=== PATIENT | female | born 1990 | race Caucasian/White ===

== ENCOUNTER → 2016-02-21 19:16 | Outpatient (CLI) | payer OTHER, MEDICAID ==
[~2016-02-21 19:16] MED LIST: IBUPROFEN600 MG PO; PERCOCET 5-3251 TAB PO; PRENATAL COMPLE1 TAB PO
[2016-03-29 05:15] VITALS: BMI 33.3
== END | disposition home or self-care (01) ==
LOC: D.LABREF 19:16
DX: J06.9 Acute upper respiratory infection, unspecified (principal)

== ENCOUNTER → 2016-02-29 17:20 | Outpatient (CLI) | payer OTHER, MEDICAID ==
[2016-02-29 19:01] LABS: APPEARANCE CLEAR (CLEAR); BILIRUBIN NEGATIVE (NEGATIVE); COLOR YELLOW (YELLOW); GLUCOSE NEGATIVE (NEGATIVE); KETONE SMALL mg/dL (NEGATIVE); LEUKOCYTE ESTERASE NEGATIVE (NEGATIVE); NITRITE NEGATIVE (NEGATIVE); PROTEIN NEGATIVE (NEGATIVE); UROBILINOGEN NORMAL (NORMAL)
[2016-03-29 05:15] VITALS: BMI 33.3
== END | disposition home or self-care (01) ==
LOC: D.LABREF 17:20 → D.LDO 17:20
PROVIDERS: Obstetrics & Gynecology
DX: Z34.90 Encounter for supervision of normal pregnancy, unspecified, unspecified trimester (principal)

== ENCOUNTER → 2016-03-10 15:25 | Outpatient (CLI) | payer OTHER, MEDICAID ==
[2016-03-10 17:17] LABS: APPEARANCE HAZY (CLEAR); BILIRUBIN NEGATIVE (NEGATIVE); COLOR YELLOW (YELLOW); GLUCOSE NEGATIVE (NEGATIVE); KETONE LARGE mg/dL (NEGATIVE); LEUKOCYTE ESTERASE 2+ (NEGATIVE); NITRITE NEGATIVE (NEGATIVE); PROTEIN NEGATIVE (NEGATIVE); UROBILINOGEN NORMAL (NORMAL); WHITE CELLS - URINE >50 /hpf (0-5)
[2016-03-10 17:18] LABS: RED CELLS - URINE 0-5 /hpf (0-5)
[2016-03-10 17:19] LABS: BACTERIA MANY /hpf (NONE SEEN); MUCUS <1+ /lpf (NONE SEEN)
[2016-03-29 05:15] VITALS: BMI 33.3
== END | disposition home or self-care (01) ==
LOC: D.LDO 15:25
PROVIDERS: Specialist
DX: Z34.90 Encounter for supervision of normal pregnancy, unspecified, unspecified trimester (principal)

== ENCOUNTER → 2016-03-16 15:04 | Outpatient (CLI) | payer OTHER, MEDICAID ==
[2016-03-16 16:21] LABS: APPEARANCE CLEAR (CLEAR); BILIRUBIN NEGATIVE (NEGATIVE); COLOR YELLOW (YELLOW); GLUCOSE NEGATIVE (NEGATIVE); KETONE NEGATIVE (NEGATIVE); LEUKOCYTE ESTERASE NEGATIVE (NEGATIVE); NITRITE NEGATIVE (NEGATIVE); PROTEIN NEGATIVE (NEGATIVE); UROBILINOGEN NORMAL (NORMAL)
[2016-03-29 05:15] VITALS: BMI 33.3
== END | disposition home or self-care (01) ==
LOC: D.LDO 15:04
PROVIDERS: Obstetrics & Gynecology
DX: O21.0 Mild hyperemesis gravidarum (principal); Z3A.38 38 weeks gestation of pregnancy

== ENCOUNTER 2016-03-29 04:30 | Inpatient (IN) | payer OTHER, MEDICAID ==
[~2016-03-29] VITALS: Ht 165.1 cm; Wt 90.7 kg
[2016-03-29] VITALS (10 sets, daily range): BP systolic 111–129; BP diastolic 64–81; Ht 165.1 cm; Wt 90.7 kg
[2016-03-29] MEDS ORDERED: PRENATAL COMPLE1 TAB PO (05:15)
[2016-03-29 06:05] LABS: HEMATOCRIT 33.8 % (36.0-48.0); MCH 28.4 pg (26.0-34.0); MCHC 32.5 g/dL (31.0-37.0); MCV 87.3 fL (80.0-100.0); MEAN PLATELET VOLUME 9.9 fL (7.4-10.4); RBC 3.87 10x6/uL (4.00-5.40); RDW 14.6 % (11.5-14.5)
[2016-03-29 06:32] LABS: APPEARANCE CLOUDY (CLEAR); COLOR YELLOW (YELLOW)
[2016-03-29 06:33] LABS: AMORPHOUS SEDIMENT <1+ /lpf (NONE SEEN); BACTERIA FEW /hpf (NONE SEEN); BILIRUBIN NEGATIVE (NEGATIVE); GLUCOSE NEGATIVE (NEGATIVE); KETONE NEGATIVE (NEGATIVE); LEUKOCYTE ESTERASE TRACE (NEGATIVE); MUCUS <1+ /lpf (NONE SEEN); NITRITE NEGATIVE (NEGATIVE); PH 6.5 (5.0-6.0); PROTEIN NEGATIVE (NEGATIVE); RED CELLS - URINE OCC /hpf (0-5); SPECIFIC GRAVITY 1.015 (1.005-1.020); UROBILINOGEN NORMAL (NORMAL); WHITE CELLS - URINE 0-5 /hpf (0-5); YEAST <1+ /hpf (NONE SEEN)
--- NOTE | 2016-03-29 14:51 | NUR ---
PT WAS RECEIVED FROM LABOR AND DELIVERY BY WHEELCHAIR. SHE TRANSFERRED TO BED. SIDE RAILS UP. BED IS LOW AND CALL LIGHT IN REACH. FUNDUS FIRM AT U2. SMALL LOCIA RUBRA.
--- NOTE | 2016-03-29 15:31 | NUR ---
PT WAS RECEIVED FROM RECOVERY POST TUBAL LIGATION. PT HAD A VAG DELIVERY THIS AM. SHE IS AWAKE AND ALERT. VSS. LUNGS- CLEAR. HEART- RRR. ABD SOFT WITH TENDERNESS WITH UMBILICAL INCISION. DRESSING CLEAN DRY AND INTACT. MODERATE LOCIA RUBRA. FUNDUS FIRM AT UMBILICUS. BED IS LOW, CALL LIGHT IN REACH AND SIDE RAILS UP X 2. SCD'S INTACT. IV INTACT R FOREARM.
--- NOTE | 2016-03-29 16:10 | NUR ---
PT STATES THAT SHE IS HAVING PAIN IN HER PERINEAL AREA AND HER ABDOMEN. SHE WOULD LIKE SOMETHING FOR PAIN. GAVE HER PERCOCET 10/325. HER MACKENZIE IS INTACT. WITH GOOD URINE OUTPUT. SHE WAS ALSO GIVEN BETADINE AND WATER TO RINSE PERINEAL AREA AFTER VOIDING AND EPIFOAM FOR HER EPISIOTOMY.
--- NOTE | 2016-03-29 16:50 | NUR ---
IV WAS SALINE LOCKED AND MACKENZIE WAS D'CD. URINE OUTPUT WAS 700 CC FOREST COLORED URINE.
--- NOTE | 2016-03-29 17:14 | NUR ---
PTS PERINAEOL PAD IS CHANGED. SMALL LOCIA RUBRA. BED PADS ARE CLEAN.
--- NOTE | 2016-03-29 18:38 | NUR ---
PT IS UP TO BATHROOM. VOIDED WITHOUT DIFFICULTY. CHANGED PERINEAL PAD AND BED PADS CHANGED. SMALL LOCIA RUBRA. BETADINE AND WATER USED AND EPIFOAM.
--- NOTE | 2016-03-29 19:00 | NUR ---
SHIFT REPORT FROM JOSS PRINCE RN
--- NOTE | 2016-03-29 19:03 | OP ---
PATIENT NAME: JARRED KAUR MEDICAL RECORD: [id number] :89 LOCATION:[id number] ADMISSION DATE:03/29/16 SURGEON: SEMAJ CALLAHAN MD DATE OF OPERATION: 03/29/2016 PREOPERATIVE DIAGNOSES: 1. Immediately after term spontaneous vaginal delivery. 2. Desired sterility. POSTOPERATIVE DIAGNOSES: 1. Immediately after term spontaneous vaginal delivery. 2. Desired sterility. SURGEON: Semaj Callahan MD. ANESTHESIA: Epidural anesthesia with Jaelyn Singh CRNA. PROCEDURE: sterilization via bilateral distal salpingectomy. FINDINGS: Normal appearing uterus, ovaries and tubes bilaterally. DESCRIPTION OF PROCEDURE: After informed consent was given, the patient was taken to the operating room where epidural anesthesia was bolused and found to be adequate. She was placed in a dorsal supine position. A Whelan catheter was placed with clear urine return noted. She was prepped and draped sterilely and infraumbilical incision was then made in transverse fashion and carried down to the underlying layer of fascia. The fascia was incised and the fascial incision extended bilaterally with the Espinoza scissors. The peritoneum was identified, grasped with 2 hemostats and entered sharply with the Metzenbaum scissors. This incision was extended bilaterally. The [facility] retractors were then placed into the incision and the left fallopian tube was visualized, grasped with a Brenna clamp, followed out to its fimbriated edge. A defect was created in the mesosalpinx proximally and distally and a hemostat was used to clamp the more proximal portion of the fallopian tube, the mesosalpinx medially and the distal portion of the mesosalpinx. The Bovie cautery was then used to excise the fallopian tube and fimbria and this was passed off the field as specimen. The 3 pedicles were then suture ligated with 3-0 Vicryl stick ties. Excellent hemostasis was noted. Attention was then turned to the opposite side. The right fallopian tube was visualized, grabbed with a Brenna clamp, followed out to its fimbriated edge. Two defects were created in the mesosalpinx with the Bovie cautery. A hemostat was placed at the proximal portion of the fallopian tube. Second hemostat was placed medially of the mesosalpinx and finally a third was placed at the distal portion of the mesosalpinx. The fallopian tube was then excised with the Bovie cautery and passed off the field as specimen. The 3 pedicles were suture ligated with 3-0 Vicryl stick ties in a similar fashion. All pedicles were then observed and noted to be hemostatic. The fascia and peritoneum were closed in one layer with #1 Vicryl in a running fashion. The subcutaneous tissue was irrigated, any bleeders cauterized with Bovie and when noted to be sufficiently dry was closed in 2 layers with 3-0 Vicryl in a running fashion. The skin was closed with 3-0 Monocryl in a subcuticular fashion. Dermabond and air strip dressing were applied. Excellent hemostasis was noted. Sponge, lap, needle, and instrument counts were reported correct times 2 and the patient went to the recovery room in stable condition. SPECIMENS: OPERATIVE REPORT [id number] JARRED KAUR 1. Right distal fallopian tube/fimbria. 2. Left distal fallopian tube/fimbria. ESTIMATED BLOOD LOSS: Minimal. COMPLICATIONS: None. TRANSINT:[id number] Voice Confirmation ID: [id number] DOCUMENT ID: [id number] SEMAJ CALLAHAN MD at 1903 CC: [id number] DICTATION DATE: 03/29/16 1436 SUPPORT TEACHER: 03/29/16 1628 ADM IN [facility] [address] [id number]
--- NOTE | 2016-03-29 19:40 | NUR ---
PM ROUNDS MADE, PT HOLDING BABY, VISITING WITH FAMILY AND FRIENDS, INFORMED PT THAT I WILL COME BACK TO DO ASSESSMENT, PT VERBALIZES UNDERSTANDING, REQUESTED AND PROVIDED PACIFIER, PT REQUESTS PAIN MED AFTER COMPANY LEAVES, INFORMED PT THAT I WILL BRING IT BACK THEN, PT DENIES FURTHER NEEDS
--- NOTE | 2016-03-29 20:35 | NUR ---
ASSESSMENT PER FLOW SHEET, VS OBTAINED, IV IN RIGHT FA INTACT WITH NO REDNESS OR EDEMA, UMB INC WITH DRESSING CDI WITH NO DRAINAGE NOTED, PT REPORTS LITE BLEEDING WITH A FEW STRINGY CLOTS, PT DENIES FLATUS, NO BM AND VOIDING BY SELF WITH NO DIFFICULTY, PT C/O INC PAIN, ADM PERCOCET AND MOM PO PER MD ORDERS, SEE EMAR, PT DENIES FURTHER NEEDS, BABY TO PT'S ARMS, FOB AT BEDSIDE
--- NOTE | 2016-03-29 21:20 | NUR ---
KAILASH MALLORY RN IN ROOM TALKING TO PT ABOUT PAPERWORK AND , BEDDING PROVIDED TO FOB AT THIS TIME
--- NOTE | 2016-03-29 21:48 | NUR ---
PT AT THIS TIME, C/O CRAMPING, ADM MOTRIN PO PER MD ORDERS, SEE EMAR, WITH FRESH H20, PT DENIES FURTHER NEEDS, FOB AT BEDSIDE
--- NOTE | 2016-03-29 22:20 | NUR ---
PT [employer] LIGHT, PT READY FOR BED, WANTED TO SEND BABY TO [facility] AT THIS TIME, INFORMED PT THAT THE [facility] NURSE WAS IN A DELIVERY AT THIS TIME, BUT I WILL TAKE BABY TO [facility] SOON SHE IS OUT OF THE DELIVERY, PT VERBALIZES UNDERSTANDING, BABY IN OPEN CRIB CART AND FOB AT BEDSIDE
--- NOTE | 2016-03-30 00:16 | NUR ---
PT RESTING WITH EYES CLOSED, RESP QUIET, NO DISTRESS NOTED, LEFT UNDISTURBED AT THIS TIME, FOB ASLEEP IN RECLINER
--- NOTE | 2016-03-30 02:09 | NUR ---
PT UP TO BR, GAIT STEADY, VOIDED BY SELF WITH NO DIFFICULTY, ARGELIA PANTIES PROVIDED, PT BACK TO BED, BABY TO [facility] VIA OPEN CRIB CART PER [facility] NURSE, PT C/O INC PAIN, ADM PERCOCET PO PER MD ORDERS, SEE EMAR, WITH FRESH H20, PINK PAD AND BLUE CHUX CHANGED, PT DENIES FURTHER NEEDS, FOB ASLEEP IN RECLINER
--- NOTE | 2016-03-30 04:02 | NUR ---
PT RESTING WITH EYES CLOSED, RESP QUIET, NO DISTRESS NOTED, LEFT UNDISTURBED AT THIS TIME, FOB ASLEEP IN RECLINER
[2016-03-30 05:28] LABS: BASOPHILS 0.1 % (0.0-2.0); EOSINOPHILS 0.8 % (0-7); HEMOGLOBIN 10.4 g/dL (12-16); IMMATURE GRANULOCYTES 0.3 % (0-5); LYMPHOCYTES 22.2 % (15-50); MCH 28.5 pg (26.0-34.0); MCHC 32.5 g/dL (31.0-37.0); MCV 87.7 fL (80.0-100.0); MEAN PLATELET VOLUME 9.4 fL (7.4-10.4); MONOCYTES 5.4 % (2-11); NEUTROPHILS 71.2 % (40-80); PLATELET COUNT 176 10x3/uL (130-400); RBC 3.65 10x6/uL (4.00-5.40); RDW 14.6 % (11.5-14.5)
--- NOTE | 2016-03-30 06:10 | NUR ---
PT HOLDING BABY, DENIES NEEDS AT THIS TIME, [facility] NURSE TO ROOM, BABY TO [facility] VIA OPEN CRIB CART PER [facility] NURSE, FOB ASLEEP IN RECLINER
--- NOTE | 2016-03-30 07:00 | NUR ---
SHIFT REPORT TO POLINA MANN RN
--- NOTE | 2016-03-30 07:50 | NUR ---
PATIENT IS RESTING IN HER BED, HOB UP IN SEMIFOWLERS. SHE STATES THAT HER PAIN IS UNCOMFORTABLE. IBUPROFEN GIVEN FOR C/O THE CRAMPING OF HER UTERUS AND THE PERCOCET GIVEN FOR C/O PAIN RATED A 4. HER FUNDUS IS FIRM AND MIDLINE, U/1. HER BELLY IS SOFT. SHE PROPERLY GUARDS HER UMBILICAL INCISION. THE DRESSING IS CLEAN AND DRY. SHE STATES THAT HER BLEEDING IS HEAVIER THAN A REGULAR PERIOD. HER HAS CHANGED HER PERIPAD EVERY TIME SHE HAS BREAST FED AND THE PAD HAS BEEN MODERATELY SOILED. INSTRUCTED HER TO LEAVE A PERIPAD WHERE IT CAN BE ASSESSED, IN THE TOILET. SHE VOICES UNDERSTANDING. FOB AT THE BEDSIDE. INFORMED OF THE MEAL CERTIFICATE IN THERE WELCOME BOX. FRESH WATER GIVEN WITH ENCOURAGEMENT TO DRINK LOTS TO HELP HER MAKE BREAST MILK.
[2016-03-30 08:00] VITALS: BP 109/74
[2016-03-30 08:20] LABS: RAPID PLASMA REAGIN Non Reactive (Non Reactive)
--- NOTE | 2016-03-30 08:57 | NUR ---
PATIENT IS SITTING UP IN HER BED, CRADLING HER INFANT. SHE IS PETTING HER AND TALKING LOVINGLY. FOBAT THE BEDSIDE LOOKING THROUGH PAPERWORK. MOTHER RATES HER DISCOMFORT A 1-2 AT THIS TIME. DENIES NEEDS. CALL LIGHT IS WITHIN HER REACH.
--- NOTE | 2016-03-30 10:16 | NUR ---
Gala Lunsford 03/30/16 LE@ 8:50 S: Patient states is going great, she feed not to long ago, sore. O: Patient in bed, semi reclined, on her chest. Asked patient how is , any questions or concern? Client states is going. Encouraged to continue to latch infant for every feeding, explain feeding cues, benefits of skin to skin. takes time and patience in the beginning, the more is placed to the breast, her body will increase, they amount of milk needed for . Provided and explain handout on waking a sleeping baby, positions for , what to expect the first week, engorgement during , and hand expression. Asked if she gets WIC, patient states yes, she made an appointment in [facility] [place] already. Asked if any questions or needs, declined, will follow up. A: Patient appears confident with . P: Continue to support exclusively . Frederick Brandt, CLC
--- NOTE | 2016-03-30 10:24 | NUR ---
LINENS PROVIDED FOR PATIENT TO SHOWER. SHE WISHES TO WEAR HER OWN CLOTHES AFTER SHOWERING OFF. IV SL REMOVED FROM RIGHT FA FULLY INTACT. SHE DENIES ANY OTHER NEEDS AT THIS TIME. FOB AT THE BEDISDE AND WILL ASSIST HER WITH ADL'S. JUST LEFT TO RETURN TO NURSERY.
--- NOTE | 2016-03-30 10:54 | NUR ---
PATIENT BACK INTO BED AFTER HER SHOWER. HER UMBILICAL INCISION IS CLEAN, WITH WELL APPROXIMATED INCISION EDGES. ADVISED HER TO LEAVE IT UNCOVERED FOR NOW AND WILL COVER AFTER MD ASSESSES IF MD ADVISES TO DO SO. THERE IS SOME SWELLING AT AROUND THE INCISION THAT REACHES 3 INCHES IN DIAMETER BUT NOTHING UNEXPECTED. THERE IS NO REDNESS OR HEAT. SHE DENIES NEEDS AND ASKS IF SHE CAN WALK OUT INTO THE HALLWAY AFTER FEEDING HER INFANT. ENCOURAGED HER TO DO SO.
--- NOTE | 2016-03-30 12:37 | NUR ---
PATIENT OUT AMBULATING IN THE HALLWAY WITH FOB AND BABY IN THE [place]. SHE DENIES DISCOMFORT AT THIS TIME.
[2016-03-30] MEDS ORDERED: IBUPROFEN600 MG PO (13:15)
[2016-03-30] MEDS ORDERED: PERCOCET 5-3251 TAB PO (13:15)
--- NOTE | 2016-03-30 13:30 | NUR ---
VEE IS RESTING IN HER BED. DENIES NEEDS AT THIS TIME. FOB REMAINS AT THE BED SIDE.
--- NOTE | 2016-03-30 14:50 | NUR ---
VEE STATE SHTAT SHE IS READY TO GO HOME SOON WE CAN GET HER PAPERS TOGETHER. SHE IS RATING HER PAIN A 4 ON THE PAIN SCALE. MEDICATIONS GIVEN IN ANTICIPATION OF DRIVE HOME. FOB PACKING THERE STUFF AND TALKING ON THE PHONE.
--- NOTE | 2016-03-30 16:00 | NUR ---
VEE TRANSFERRED OUT TO WAITING VEHICLE AFTER REVIEWING HER DISCHARGE INSTRUCTIONS. DISCUSSED INCISION CARE, PELVIC REST, PRESCRIPTIONS, AND FOLLOW UP APPT. PRESCRIPTIONS GIVEN.
== END 2016-03-30 16:00 | disposition home or self-care (01) | DRG 767 ==
LOC: D.LD 04:30 → D.WS 04:33 → D.LD 04:33 → D.WS 15:01
PROVIDERS: ADMIT Specialist
PROC: 0W8NXZZ Division of Female Perineum, External Approach (ICD-10-PCS; 2016-03-29)
PROC: 10E0XZZ Delivery of Products of Conception, External Approach (ICD-10-PCS; principal; 2016-03-29 14:00)
PROC: 0UT70ZZ Resection of Bilateral Fallopian Tubes, Open Approach (ICD-10-PCS; 2016-03-29 14:00)
DX: O99.214 Obesity complicating childbirth (principal); Z3A.39 39 weeks gestation of pregnancy; Z37.0 Single live birth; R87.610 Atypical squamous cells of undetermined significance on cytologic smear of cervix (ASC-US); Z30.2 Encounter for sterilization; Z30.09 Encounter for other general counseling and advice on contraception

== ENCOUNTER → 2020-07-01 15:57 | Outpatient (CLI) | payer BC ==
[2016-03-29 05:15] VITALS: BMI 33.3
== END | disposition home or self-care (01) ==
LOC: D.RT 15:57
PROVIDERS: ATTEND Family Medicine
DX: R06.00 Dyspnea, unspecified (principal)